=== PATIENT | male | born 1955 | race African-American/Black ===

== ENCOUNTER → 2016-08-28 | Outpatient (CLI) | payer OTHER ==
[~2016-08-28] MED LIST: /TAMS4CA PO; CELE-19 PO; GABA-279 PO; HYDR12.55 PO; IBUP200T2 PO; NASA55AE; PRIN10TA PO; TOPA25TA PO; VENTAER INH; VICO5TA PO
--- NOTE | 2016-08-28 19:00 | REP ---
Maxillofacial CT study without contrast: History: Chronic pansinusitis. No prior sinus surgery. Comparison study August 31, 2013 [facility]. Technique: Helical scanning is acquired. Coronal multiplanar reformation images are generated. CT findings: There is mild mucosal thickening affecting several of the right anterior ethmoid air cells. This is similar to the findings of the prior study. Left ethmoid sinuses are clear. There is mild mucosal thickening at the superior aspect of each maxillary sinus. Sphenoid sinuses are clear. The frontal sinuses are clear. 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 This measures 6.5 mm in size. It measured 5 mm previously. Bony nasal septum is in the midline. Nasal turbinate soft tissues are symmetric and unremarkable. There is mucosal thickening narrowing the ostium and infundibulum of the right ostiomeatal complex. Left OMC is patent. Bony sinus and orbital margins are intact. There is evidence of an old blowout fracture of the floor of the left orbit. This is unchanged from the comparison CT study. No other abnormality. Impression: 1. Paranasal sinus mucosal changes affecting the maxillary and right ethmoid sinuses. There is mucosal thickening narrowing the ostium and infundibulum of the right OMC. 2. Old blowout fracture floor of the left orbit. 3. 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 Signed by Chi Davila MD 08/28/2016 07:03 P
== END ==
LOC: M RAD 17:32
PROVIDERS: ATTEND Otolaryngology
DX: J32.4 Chronic pansinusitis (principal); D16.4 Benign neoplasm of bones of skull and face; Z87.81 Personal history of (healed) traumatic fracture